=== PATIENT | female | born 1955 ===

== ENCOUNTER 2023-07-27 09:28 | Inpatient (IN) ==
--- NOTE | 2023-07-27 09:39 | Emergency Department Note ---
Impression & Plan Atrial fibrillation and flutter, Chest pain ED Provider Note NAME: RAJINDER MEADOWS AGE: 68 SEX: F : 1955 ARRIVES VIA: Walk-In INFORMANT: Patient, ED PROVIDER(S): Ezequiel Flores MD CHIEF COMPLAINT: Outpatient referral, A-fib MEDICAL DECISION MAKING: Patient presents as an outpatient referral due to concern for A-fib and elevated heart rate. IV was established and blood work was obtained. Patient has a normal white count H&H and platelet count patient's kidney function is unremarkable but with prerenal azotemia. Mag is normal. TSH is elevated so free T4 was added. Chest x-ray clear. Heart rate is currently well-controlled. EKG shows possible atrial flutter with variable block versus A-fib but is irregularly irregular [id number] score of 2 so heparin drip was ordered. I did speak with the on-call hospital service Dr. Rocha after informing the patient the patient's of the findings and recommendations. They are comfortable plan of care. Patient was admitted to the medicine service Dr. Rocha. Critical Care: I have personally spent 40 minutes of critical care time in direct management of this patient. This includes bedside care, interpretation of diagnostic studies, and testing, discussion with consultants, patient, and family members, and other require inpatient management activities. This 40 minutes is in excess of all separately billable procedures. Discussion w/ other healthcare providers: Dr. Rocha inpatient medicine service Prior /Outside records reviewed: None Differential diagnosis: Cardiac ischemia, aortic dissection, pulmonary embolism, pneumothorax, pneumonia, pericarditis, myocarditis, GERD, cholecystitis, pancreatitis, musculoskeletal, as well as other pathologies were considered. Diagnostics, as interpreted by me: ECG: Irregularly irregular, possible A-fib versus atrial flutter with variable block. Cardiac monitoring: An order was placed for continuous cardiac monitoring. The monitor shows a rate of 82 with irregular irregular rhythm. Patient was placed on pulse oximetry Medical decision rules: CHADS2 vascular score Imaging studies: I informally interpreted the patient's chest x-ray does not show obvious pneumonia or pneumothorax with formal report to follow. HPI: Patient presents with at bedside due to concern for outpatient A- fib and referral. Patient reportedly showed up to a [facility] [employer] [facility] [facility] appointment a day early but vitals were taken and she was referred here after noticing that the patient was in A-fib. The patient states that occasionally she has had episodes of palpitations in the past but not in the last several weeks. Patient denies any shortness of breath. She does occasionally get left-sided chest pain but it is fleeting in nature and thinks it is related to muscle strain. The patient denies any nausea vomiting or diaphoresis. No recent falls or trauma. Th no reported cough or fever. The patient does drink alcohol sparingly and denies any tobacco or drug use. She does drink a caffeinated coffee once per day. Patient denies any prior history of A-fib. In the past when she did have some associated palpitations the patient had been on Synthroid in the past but this was stopped as it was thought that maybe it was exacerbating her palpitations. Patient denies any recent changes in medications or missed doses. The patient does follow with Dr. Lombardo with internal medicine and does follow with Dr. Funes with [facility] [employer] [facility]. Patient's also reports that the patient has had some associated urinary symptoms frequency and urgency and does have a follow-up with urology gynecology at [facility] in August. Patient is currently on Cipro. Patient states that she occasionally does get some lower extremity swelling but she did walk around a lot yesterday and this seems to have improved. PAST MEDICAL HISTORY: See Below PAST SURGICAL HISTORY: See Below SOCIAL HISTORY: See Below HOME MEDICATIONS: See Below ALLERGIES: See Below VITALS: See Below PHYSICAL EXAMINATION: GENERAL: NAD, non-toxic. EYE EXAM: Normal conjunctiva. PERRL, no anisocoria and EOM's grossly intact w/o pain. OROPHARYNX: Moist mucus membranes, grossly normal dentition. NECK: Trachea midline, no stridor. LUNGS: Clear to auscultation. Normal chest wall mechanics. HEART: N irregularly irregular SR, no MRG. ABDOMEN: Abdomen soft, non-tender, no masses, no rebound or guarding. BACK: No CVA TTP. SKIN: No rashes and no bruising. UPPER EXTREMITIES: Upper extremities are grossly normal. LOWER EXTREMITIES: Grossly normal, no edema. NEURO EXAM: A&O x3, cranial nerves II-XII grossly intact, normal speech, moves all 4 extremities. Past Med/Surg History Problem List (Updated 07/27/23 @ 12:05 by Ezequiel Flores MD) Chest pain (Acute) Atrial fibrillation and flutter (Acute) Encounter for pre-operative examination Medical History Overactive bladder History of hypothyroidism med causing palpitations years ago, no longer on medication Diabetes mellitus, type 2 NIDDM Glaucoma Follows with eye doctor routinely Hypertension Surgical History S/P panniculectomy Hx of colonoscopy Hx of bilateral cataract extraction Social History Smoking Status: Never smoker Second Hand Exposure: No; Do You Dip or Chew Tobacco: No; Hx Alcohol Use: Yes Hx Substance Use: No Preferred Language: Solomon Islander Communication Ability: Effective Anger Control Counselor Required: No Beliefs That Will Affect Care: None Current Living Situation: Spouse Feels Safe at Home: Yes Assistive Devices: None Allergies Allergies Allergy/AdvReac Type Severity Reaction Status Date / Time No Known Allergies Allergy Verified 07/23/23 08:41 Home Meds Home Medications Medication Instructions Recorded Confirmed amlodipine 5 mg tablet 5 mg PO HS 07/23/23 07/23/23 bimatoprost 0.01 % eye drops 1 drp ophthalmic (eye) HS 07/23/23 07/23/23 (Lumigan) brimonidine 0.2 %-timolol 0.5 % 1 drp ophthalmic (eye) BID 07/23/23 07/23/23 eye drops (Combigan) calcium carbonate 600 mg-vitamin 1 tab PO DAILY 07/23/23 07/23/23 D3 5 mcg (200 unit) tablet losartan 50 mg tablet 50 mg PO HS 07/23/23 07/23/23 metformin 500 mg tablet 250 mg PO BID 07/23/23 07/23/23 mirabegron 50 mg tablet,extended 50 mg PO QAM 07/23/23 07/23/23 release 24 hr (Myrbetriq) multivitamin 1 tab PO QAM 07/23/23 07/23/23 zolpidem 5 mg tablet (Ambien) 5 mg PO HS 07/23/23 07/23/23 Results & Data (ED) Vital Signs Vital Signs - 24 hr 07/27/23 09:31 07/27/23 09:44 07/27/23 10:02 Temperature 36.8 C Temperature Source Skin Pulse Rate 132 H 63 68 Pulse Rate [Apical] Pulse Rhythm Regular Pulse Rhythm [Apical] Pulse Strength Normal Pulse Strength [Apical] Respiratory Rate 18 18 20 Respiratory Effort / Characteristics Non-Labored Spontaneous Respiratory Depth Normal Respiratory Pattern Regular Blood Pressure 90/64 L Blood Pressure [Right Arm] Blood Pressure Mean 72 Blood Pressure Mean [Right Arm] Blood Pressure Position Sitting Pulse Oximetry 97 Oxygen Delivery Method Room Air Sepsis Recent Fever Within 48 Hours No Sepsis New/Unexplained Change in Mental Status No Sepsis Action Taken by Nursing No Action Required 07/27/23 10:03 07/27/23 10:39 07/27/23 11:00 Temperature Temperature Source Pulse Rate 75 73 Pulse Rate [Apical] 67 Pulse Rhythm Pulse Rhythm [Apical] Pulse Strength Pulse Strength [Apical] Respiratory Rate 20 19 Respiratory Effort / Characteristics Non-Labored Spontaneous Respiratory Depth Normal Respiratory Pattern Regular Blood Pressure Blood Pressure [Right Arm] 84/53 L Blood Pressure Mean Blood Pressure Mean [Right Arm] 63 Blood Pressure Position Pulse Oximetry 96 Oxygen Delivery Method Room Air Sepsis Recent Fever Within 48 Hours Sepsis New/Unexplained Change in Mental Status Sepsis Action Taken by Nursing 07/27/23 11:53 Temperature Temperature Source Pulse Rate Pulse Rate [Apical] 81 Pulse Rhythm Pulse Rhythm [Apical] Irregular Pulse Strength Pulse Strength [Apical] Normal Respiratory Rate 19 Respiratory Effort / Characteristics Non-Labored Spontaneous Respiratory Depth Normal Respiratory Pattern Regular Blood Pressure Blood Pressure [Right Arm] 107/81 Blood Pressure Mean Blood Pressure Mean [Right Arm] 89 Blood Pressure Position Pulse Oximetry 98 Oxygen Delivery Method Room Air Sepsis Recent Fever Within 48 Hours Sepsis New/Unexplained Change in Mental Status Sepsis Action Taken by Long Term Medications Current Medication List: was personally reviewed by me Laboratory Data Attestation: I reviewed the patient's lab results. 07/27/23 10:17 07/27/23 10:17 Lab Results 07/27/23 Range/Units 10:17 WBC 6.01 (4.8-10.8) K/ul RBC 4.10 L (4.20-5.40) M/uL Hgb 12.2 (12.0-16.0) g/dl Hct 37.4 (37.0-47.0) % MCV 91.2 (80.0-100.0) fL MCH 29.8 (25.0-34.0) pg MCHC 32.6 (32.0-36.0) g/dL RDW Std Deviation 43.1 (36.4-46.3) fL RDW Coeff of Janice 13.0 (11.5-14.5) % Plt Count 227 (130-400) K/uL MPV 9.8 (9.4-12.4) fL Immature Gran % (Auto) 0.3 % Neut % (Auto) 68.6 % Lymph % (Auto) 20.6 % Coryell % (Auto) 7.5 % Eos % (Auto) 2.3 % Baso % (Auto) 0.7 % Neut # (Auto) 4.12 (1.40-6.50) K/uL Lymph # (Auto) 1.24 (1.20-3.40) K/uL Coryell # (Auto) 0.45 (0.11-0.59) K/uL Eos # (Auto) 0.14 (0.00-0.50) K/uL Baso # (Auto) 0.04 (0.00-0.20) K/uL Immature Gran # (Auto) 0.02 (0.01-0.20) K/uL PT 10.7 (9.0-12.0) Seconds INR 1.0 (0.9-1.1) APTT 26 (21-31) Seconds PTT Ratio 1.0 Sodium 139 (136-145) mmol/L Potassium 4.2 (3.5-5.1) mmol/L Chloride 107 (98-107) mmol/L Carbon Dioxide 26 (21-32) mmol/L Anion Gap 6 (3-11) BUN 21 (6-23) mg/dl Creatinine 0.86 (0.6-1.2) mg/dl Est Cr Clr Drug Dosing Not Reportable Est GFR ( Amer) 81.0 ml/min Est GFR (Non-Af Amer) 69.9 ml/min BUN/Creatinine Ratio 24.4 H (10-20) Glucose 140 H (70-99(Fasting)) mg/dl Calcium 9.2 (8.6-10.3) mg/dl Magnesium 2.0 (1.7-2.4) mg/dl Total Bilirubin 0.6 (0.2-1.0) mg/dl AST 19 (13-39) U/L ALT 23 (7-52) U/L Alkaline Phosphatase 59 (34-104) U/L Troponin I High Sens 3.6 (0-14) pg/ml Total Protein 7.1 (6.0-8.3) gm/dl Albumin 4.1 (3.4-5.0) gm/dl Globulin 3.0 (2.5-4.0) gm/dl Albumin/Globulin Ratio 1.4 (0.9-2) TSH 6.089 H (0.300-4.500) uIu/ml Free T4 Cancelled Administered Medications Heparin Sodium/Dextrose (Heparin Sodium/Dextrose) 25,000 units in 500 mls @ 14 mls/hr IV .Q24H JENNIFER; Protocol Stop: 08/26/23 11:29 Last Admin: 07/27/23 12:00 Dose: 700 units/hr, 14 mls/hr Documented By: JADE Co-signed By: CONNOR Imaging Data Radiologist's Impression: Chest X-Ray 07/27/23 10:04 XR chest 1V portable HISTORY: 68 years-old Female Dysrhythmia COMPARISON: None TECHNIQUE: AP view the chest FINDINGS: Cardiac silhouette is mildly enlarged. The lungs are clear with minimal left basilar atelectasis. No pneumothorax or pleural effusion. IMPRESSION: Cardiomegaly without acute process. ACT 112: Negative or not required by law. The above report was generated using voice recognition software. It may contain grammatical, syntax or spelling errors. Electronically signed by: Skip Avendano M.D. 07/27/2023 10:22 AM Discharge Plan Visit Data Chief Complaint: Cardiac Assessment Stated Complaint: AFIB FOUND DURING PRE-OP APPT ED Provider: Ezequiel Flores Discharge Problem: Atrial fibrillation and flutter, Chest pain Forms Stand Alone Forms: My [facility] Prescriptions Prescriptions: No Action multivitamin Tablet 1 tab PO QAM losartan 50 mg Tablet 50 mg PO HS metformin 500 mg Tablet 250 mg PO BID amlodipine 5 mg Tablet 5 mg PO HS calcium carbonate-vitamin D3 [Calcium + D] 600 mg-5 mcg (200 unit) Tablet 1 tab PO DAILY Patient Comments: doesn't take on a regular basis zolpidem [Ambien] 5 mg Tablet 5 mg PO HS brimonidine-timolol [Combigan] 0.2-0.5 % Drops 1 drp OPHTHALMIC (EYE) BID Lumigan 0.01 % Drops 1 drp OPHTHALMIC (EYE) HS mirabegron [Myrbetriq] 50 mg Tablet Extended Release 24 Hr 50 mg PO QAM Referrals Referrals: Valeria Macias M.D. [Primary Care Provider] - Discharge Problem: Chest pain Qualifiers: Chest pain type: unspecified Qualified Code(s): R07.9 - Chest pain, unspecified
--- NOTE | 2023-07-27 10:24 | XRay Report ---
XR chest 1V portable HISTORY: 68 years-old Female Dysrhythmia COMPARISON: None TECHNIQUE: AP view the chest FINDINGS: Cardiac silhouette is mildly enlarged. The lungs are clear with minimal left basilar atelectasis. No pneumothorax or pleural effusion. IMPRESSION: Cardiomegaly without acute process. ACT 112: Negative or not required by law. The above report was generated using voice recognition software. It may contain grammatical, syntax o r spelling errors. Electronically signed by: Skip Avendano M.D. 07/27/2023 10:22 AM
[2023-07-27 10:32] LABS: Basophils # (auto) 0.04 K/uL (0.00-0.20); Basophils % (auto) 0.7 %; Eosinophils # (auto) 0.14 K/uL (0.00-0.50); Eosinophils % (auto) 2.3 %; Hematocrit (blood only) 37.4 % (37.0-47.0); Hemoglobin 12.2 g/dl (12.0-16.0); Immature Granulocytes # (auto) 0.02 K/uL (0.01-0.20); Immature Granulocytes % (auto) 0.3 %; Lymphocytes # (auto) 1.24 K/uL (1.20-3.40); Lymphocytes % (auto) 20.6 %; Mean Corpuscular Hemoglobin 29.8 pg (25.0-34.0); Mean Corpuscular Hgb Conc 32.6 g/dL (32.0-36.0); Mean Corpuscular Volume 91.2 fL (80.0-100.0); Mean Platelet Volume 9.8 fL (9.4-12.4); Monocytes # (auto) 0.45 K/uL (0.11-0.59); Monocytes % (auto) 7.5 %; Neutrophils # (auto) 4.12 K/uL (1.40-6.50); Neutrophils % (auto) 68.6 %; Platelet Count 227 K/uL (130-400); RDW Standard Deviation 43.1 fL (36.4-46.3); White Blood Count 6.01 K/ul (4.8-10.8)
[2023-07-27 10:48] LABS: Alanine Aminotransferase 23 U/L (7-52); Albumin Globulin Ratio 1.4 (0.9-2); Albumin Level 4.1 gm/dl (3.4-5.0); Alkaline Phosphatase 59 U/L (34-104); Anion Gap 6 (3-11); Aspartate Aminotransferase 19 U/L (13-39); BUN Creatinine Ratio 24.4 (10-20); Bilirubin,Total 0.6 mg/dl (0.2-1.0); Blood Urea Nitrogen 21 mg/dl (6-23); Calcium 9.2 mg/dl (8.6-10.3); Carbon Dioxide 26 mmol/L (21-32); Chloride 107 mmol/L (98-107); Est GFR (Non-African American) 69.9 ml/min; Glucose 140 mg/dl (70-99(Fasting)); Potassium 4.2 mmol/L (3.5-5.1); Sodium 139 mmol/L (136-145); Total Protein 7.1 gm/dl (6.0-8.3)
[2023-07-27 10:54] LABS: Troponin I High Sensitivity 3.6 pg/ml (0-14)
[2023-07-27 10:58] LABS: Partial Thromboplastin Time 26 Seconds (21-31); Prothrombin Time 10.7 Seconds (9.0-12.0)
[2023-07-27 11:03] LABS: Thyroid Stimulating Hormone 6.089 uIu/ml (0.300-4.500)
[2023-07-27] MEDS ORDERED: GLUCOSE 40% GEL 15 GM TUBE PO PRN (11:38)
[2023-07-27] MEDS ORDERED: POLYETHYLENE (MIRALAX) 17 GM PACK PO PRN (11:38)
[2023-07-27] MEDS ORDERED: ACETAMINOPHEN 325 MG TAB PO PRN (11:38)
[2023-07-27] MEDS ORDERED: ONDANSETRON INJ 2 MG/ML 2 ML VIAL IV PRN (11:38)
[2023-07-27] MEDS ORDERED: DEXTROSE 50% 50 ML SYRINGE IV PRN (11:38)
[2023-07-27] MEDS ORDERED: ALUMINUM/MAGNESIUM SUSP 30 ML UDC PO PRN (11:38)
[2023-07-27] MEDS ORDERED: GLUCAGON FOR INJ 1 MG VIAL SQ PRN (11:38)
[2023-07-27] MEDS ORDERED: CARBOHYDRATES FOR HYPOGLYCEMIA PO PRN (11:38)
[2023-07-27] MEDS ORDERED: GLUCOSE 10 TAB/TUBE PO PRN (11:38)
--- NOTE | 2023-07-27 11:52 | History & Physical Report ---
Date of Service July 27, 2023 Assessment & Plan (1) Atrial fibrillation and flutter: Plan Atrial fibrillation, rate controlled, new diagnosis, symptomatic Patient sent from preop evaluation for noting A-fib in the EKG. Admitting EKG with A-fib w/ rates 60s to 70s. Patient with no complaint of palpitation, has intermittent chest pain. TSH minimally elevated, patient was on levothyroxine in the past which was discontinued due to frequent palpitations in the past. Patient was started on heparin drip, will continue Cardiology consult, telemetry monitoring. Likely to p.o. anticoagulation on discharge. monitor and replete electrolytes. Being treated for UTI as an outpatient: Day 3 of ciprofloxacin per patient. Will continue ciprofloxacin 500 mg twice daily. Other chronic medical conditions: medications were reviewed with the patient in detail. Continue/resume home meds as and when able. DVT prophylaxis: Patient on heparin drip for A-fib Full code History of Present Illness Chief Complaint: afib Primary Care Provider: Valeria Macias 68-year-old female with PMH of HTN, overactive bladder on Myrbetriq presented to the ED at referral from preop evaluation due to noted A-fib with rate in 70s in the EKG. Patient reports having history of intermittent palpitation in the past and her PCP has discontinued her levothyroxine which kind of took care of her frequent palpitations in the past. See also reports some intermittent spontaneously resolving in few seconds kind of chest pain once a week around the mid sternum. She feels it is sprain. Patient denies fever/sore throat/cough/palpitation currently/belly pain. Patient reports being on antibiotic day 3 of Cipro for UTI. Patient denies abdominal pain or any acute changes in her bowel habit. Patient denies smoking/alcohol/recreational drug use. Full code Plan of care discussed in detail with the patient. Allergies Allergy/AdvReac Type Severity Reaction Status Date / Time No Known Allergies Allergy Verified 07/23/23 08:41 Home Medications Medication Instructions Recorded Confirmed Type amlodipine 5 mg tablet 5 mg PO HS 07/23/23 07/23/23 History bimatoprost 0.01 % eye drops 1 drp ophthalmic (eye) HS 07/23/23 07/23/23 History (Ruben) brimonidine 0.2 %-timolol 0.5 % 1 drp ophthalmic (eye) BID 07/23/23 07/23/23 History eye drops (Combigan) calcium carbonate 600 mg-vitamin 1 tab PO DAILY 07/23/23 07/23/23 History D3 5 mcg (200 unit) tablet losartan 50 mg tablet 50 mg PO HS 07/23/23 07/23/23 History metformin 500 mg tablet 250 mg PO BID 07/23/23 07/23/23 History mirabegron 50 mg tablet,extended 50 mg PO QAM 07/23/23 07/23/23 History release 24 hr (Myrbetriq) multivitamin 1 tab PO QAM 07/23/23 07/23/23 History zolpidem 5 mg tablet (Ambien) 5 mg PO HS 07/23/23 07/23/23 History Past Med/Surg History Problem List (Updated 07/27/23 @ 11:45 by Ezequiel Flores MD) Chest pain (Acute) Atrial fibrillation and flutter (Acute) Encounter for pre-operative examination Medical History Overactive bladder History of hypothyroidism med causing palpitations years ago, no longer on medication Diabetes mellitus, type 2 NIDDM Glaucoma Follows with eye doctor routinely Hypertension Surgical History S/P panniculectomy Hx of colonoscopy Hx of bilateral cataract extraction Social History Smoking Status: Never smoker Second Hand Exposure: No; Do You Dip or Chew Tobacco: No; Hx Alcohol Use: Yes Hx Substance Use: No Preferred Language: Hungarian Communication Ability: Effective Email Marketing Processor Required: No Beliefs That Will Affect Care: None Current Living Situation: Spouse Feels Safe at Home: Yes Assistive Devices: None Review of Systems Review of Systems: Negative otherwise mentioned in HPI. Physical Exam Physical Exam: GENERAL: Alert and oriented x3. NAD, on RA. HEENT: No pallor, no icterus. Pupils equal, round and reactive to light. Oral mucosa moist. NECK: No JVD, no neck masses. HEART: S1 and S2 heard. irregular rate and rhythm. No murmur, no gallop. RESPIRATORY SYSTEM: Normal AP diameter. No accessory muscle use. No wheezing, no crackles. ABDOMEN: Soft, bowel sounds present, nontender, no distention. CENTRAL NERVOUS SYSTEM: No facial droop. Speech is clear. Obeys simple commands. Moves extremities. EXTREMITIES: No edema, no erythema seen. Results & Data Results & Data Vital Signs (Past 12 Hours) Vital Signs Temp Pulse Pulse Resp BP BP Pulse Ox 07/27/23 11:00 67 19 84/53 L 96 07/27/23 10:39 73 20 07/27/23 10:03 75 07/27/23 10:02 68 20 07/27/23 09:44 63 18 07/27/23 09:31 36.8 C 132 H 18 90/64 L 97 O2 Del Method 07/27/23 11:00 Room Air 07/27/23 10:39 07/27/23 10:03 07/27/23 10:02 07/27/23 09:44 07/27/23 09:31 Room Air
[2023-07-27] MEDS: HEPARIN SODIUM/DEXTROSE 25,000 UNITS/500 ML BAG IV SCH (12:00)
[2023-07-27] MEDS: Heparin IV Adult Wt-Based Low-Dose *NO* INITIAL Bolus Protocol IV STA (12:05)
[2023-07-27 12:26] LABS: T4 Free Thyroxine 0.98 ng/dl (0.61-1.60)
--- NOTE | 2023-07-27 16:07 | Cardiology Consultation ---
Date of Consultation July 27, 2023 Assessment & Plan (1) Atrial fibrillation and flutter: (2) Hypertension: (3) Hypothyroidism: Plan Assessment: 68 year old female that presents after EKG obtained for preop surgical clearance demonstrates Atrial fibrillation, rate controlled with no prior history. Plan: 1. Atrial fibrillation: -New onset, although given patient's reports of years of palpitations, suspect this is just the first that it has been diagnosed. -Etiology unclear. labs stable outside of elevated TSH; however, free T4 is normal. -Currently under treatment for a acute UTI with oral antibiotics, continue. -Rate controlled on telemetry, continue to monitor. -Will obtain echocardiogram to assess overall structure, function and for any concerns of valvular disease. -Continue Heparin gtt at this time. CHADs2-VASC score of 3 (Age, Gender, HTN) increasing her risk of a thrombo-embolic event with recommendation for oral anticoagulation prior to discharge likely with Eliquis 5mg PO BID. 2. HTN: -currently at target. -Continue Amlodipine 5mg PO Daily and Losartan 50 mg Daily -Await echo results. 3. Hypothyroidism: -Elevated TSH; however, normal Free T4. Not currently on thyroid supplementation. -Continued monitoring and management by primary team. Case has been discussed with Dr. Orlando. Further recommendations regarding plan of care as per his assessment. I spent a total of 40 minutes on the date of service in preparation, delivery, documentation of the care provided to the patient excluding any time spent in the performance of separately billed services. SANA Cyr [facility] Cardiology [facility] Supervising Physician Co-Signing Physician Notes Patient was seen and personally examined. Full assessment and plan as well outlined above. Care and management discussed in detail with advanced provider and personally endorsed 68-year-old female with history of hypertension, hypothyroidism, borderline hyperglycemia but no noted prior history of cardiac disease other than occasional palpitations. Patient presented for routine preoperative assessment was found to be in atrial fibrillation with controlled ventricular response rate secondary to intrinsic conduction system disease. Patient minimally symptomatic to asymptomatic No prior history of angina, myocardial infarction, congestive heart failure, TIA or stroke, vascular disease. Chads Vasc 2 score of 3 possibly 4 The echocardiogram demonstrates mild left hypertrophy with preserved wall motion [id number] biatrial enlargement and no significant valvular disease Plan:Observe on telemetry overnight. assess for tachy-ashley arrhythmias suspect patient may require low-dose rate control therapies. Anticoagulation initiated with IV heparin would convert to Eliquis if not cost prohibitive Discussed management pathways for atrial fibrillation with patient I spent a total of 25 minutes on the date of service in preparation, delivery, documentation of the care provided to the patient excluding any time spent in the performance of separately billed se History of Present Illness Reason for Consultation: New onset atrial fibrillation Requesting Physician: Ct hrady Attending Physician: Emmanuel Rocha MD History of Present Illness HPI: Patient is a very pleasant 68 year-old female what presented to the ED today upon recommendation of her primary provider due to an abnormal EKG. Patient had been at [facility] for a preoperative work-up in anticipation to undergo a Right Total knee arthroplasty in September [address] Funes. Upon obtaining the preop EKG, she was noted to be in A-fib with non-specific T wave abnormality;however, low voltage. Rates 76bpm. She was recommended to present to the ED. Repeat EKG essentially unchanged. No acute ST-T wave changes. PMHx: 1. HTN 2. Hypothyroidism 3. Overactive bladder, on Myrbetriq 4. OA Chest xray suggest cardiomegaly, but no acute process. Labs show normal renal function and electrolytes, Random glucose with mild elevation. no history of diabetes. WBC normal and no evidence of anemia. TSH elevated, Free T4 normal. Of note, patient is currently being treated for a UTI. Troponin negative x1 patient is resting comfortably in bed at time of consultation. Offers no significant complaint. She denies any chest pain, pressure or palpitations. She does; however, endorse that she has had palpitations for years which she reports that her PCP always attributed to her thyroid. Since reducing her medication, she feels that they have improved. She does endorse some increased palpitations on heavy exertion, but no chest pain or pressure, Quickly relieved with rest. Denies any shortness of breath, no PND, no lightheadedness or dizziness. No edema. She is an active individual. Gives the example that she was out hiking yesterday. Review of telemetry demonstrates A-fib rates 60-90's. Echocardiogram pending. Allergies Allergy/AdvReac Type Severity Reaction Status Date / Time No Known Allergies Allergy Verified 07/23/23 08:41 Home Medications Medication Instructions Recorded Confirmed Type amlodipine 5 mg tablet 5 mg PO HS 07/23/23 07/27/23 History bimatoprost 0.01 % eye drops 1 drp ophthalmic (eye) HS 07/23/23 07/27/23 History (Lumigan) brimonidine 0.2 %-timolol 0.5 % 1 drp ophthalmic (eye) BID 07/23/23 07/27/23 History eye drops (Combigan) losartan 50 mg tablet 50 mg PO HS 07/23/23 07/27/23 History metformin 500 mg tablet 250 mg PO BID 07/23/23 07/27/23 History mirabegron 50 mg tablet,extended 50 mg PO QPM 07/23/23 07/27/23 History release 24 hr (Myrbetriq) multivitamin 1 tab PO QAM 07/23/23 07/27/23 History zolpidem 10 mg tablet 10 mg PO HS 07/27/23 07/27/23 History Patient History Medical History Overactive bladder History of hypothyroidism med causing palpitations years ago, no longer on medication Diabetes mellitus, type 2 NIDDM Glaucoma Follows with eye doctor routinely Hypertension Surgical History S/P panniculectomy Hx of colonoscopy Hx of bilateral cataract extraction Social History Smoking Status: Never smoker Second Hand Exposure: No; Do You Dip or Chew Tobacco: No; Hx Alcohol Use: Yes Alcohol type: wine Hx Substance Use: No Preferred Language: Latvian Communication Ability: Effective Concert Singer Required: No Beliefs That Will Affect Care: None Current Living Situation: Family Feels Safe at Home: Yes Safety Concerns: Feels Safe At This Time Assistive Devices: None Review of Systems Review of Systems: All systems reviewed & are unremarkable except as noted in HPI & below Physical Exam Constitutional: well developed and well nourished; no acute distress and not ill appearing Neck: normal visual inspection and trachea midline Respiratory: normal respiratory effort, lungs clear to auscultation no cough Auscultation: lungs clear to auscultation bilaterally; no diminished lung sounds, no crackles, no rales, no rhonchi and no wheezes Cardiovascular: Rate/Rhythm: + irregularly irregular Heart Sounds: normal S1 and normal S2; no murmur Vessels: dorsalis pedis pulses present; no JVD Extremities: no edema Skin: no rashes, warm and dry Psychiatric: A+Ox3, euthymic affect Results & Data Vital Signs (Past 12 Hours) Vital Signs Temp Pulse Pulse Resp BP BP Pulse Ox 07/27/23 15:08 81 18 117/99 98 07/27/23 12:26 80 19 111/89 99 07/27/23 12:26 99 07/27/23 11:53 81 19 107/81 98 07/27/23 11:00 67 19 84/53 L 96 07/27/23 10:39 73 20 07/27/23 10:03 75 07/27/23 10:02 68 20 07/27/23 09:44 63 18 07/27/23 09:31 36.8 C 132 H 18 90/64 L 97 O2 Del Method 07/27/23 15:08 Room Air 07/27/23 12:26 Room Air 07/27/23 12:26 Room Air 07/27/23 11:53 Room Air 07/27/23 11:00 Room Air 07/27/23 10:39 07/27/23 10:03 07/27/23 10:02 07/27/23 09:44 07/27/23 09:31 Room Air Laboratory Results Cardiac Enzymes 07/27/23 Range/Units 10:17 AST 19 (13-39) U/L Troponin I High Sens 3.6 (0-14) pg/ml Coagulation 07/27/23 Range/Units 10:17 PT 10.7 (9.0-12.0) Seconds APTT 26 (21-31) Seconds CBC 07/27/23 Range/Units 10:17 WBC 6.01 (4.8-10.8) K/ul RBC 4.10 L (4.20-5.40) M/uL Hgb 12.2 (12.0-16.0) g/dl Hct 37.4 (37.0-47.0) % Plt Count 227 (130-400) K/uL Neut # (Auto) 4.12 (1.40-6.50) K/uL Lymph # (Auto) 1.24 (1.20-3.40) K/uL [place] # (Auto) 0.45 (0.11-0.59) K/uL Eos # (Auto) 0.14 (0.00-0.50) K/uL Baso # (Auto) 0.04 (0.00-0.20) K/uL Comprehensive Metabolic Panel 07/27/23 Range/Units 10:17 Sodium 139 (136-145) mmol/L Potassium 4.2 (3.5-5.1) mmol/L Chloride 107 (98-107) mmol/L Carbon Dioxide 26 (21-32) mmol/L BUN 21 (6-23) mg/dl Creatinine 0.86 (0.6-1.2) mg/dl Glucose 140 H (70-99(Fasting)) mg/dl Calcium 9.2 (8.6-10.3) mg/dl AST 19 (13-39) U/L ALT 23 (7-52) U/L Alkaline Phosphatase 59 (34-104) U/L Total Protein 7.1 (6.0-8.3) gm/dl Albumin 4.1 (3.4-5.0) gm/dl Intake and Output 07/27/23 07/27/23 07/27/23 06:59 14:59 22:59 Other: # Unmeasured Voids 1 1 Weight 69 kg Weight Measurement Method Built in [facility] Patient Weight 07/28/23 06:59 Weight 69 kg
--- NOTE | 2023-07-27 17:15 | Electrocardiogram Report ---
Test Reason : Blood Pressure : / mmHG Vent. Rate : 080 BPM Atrial Rate : 000 BPM P-R Int : 000 ms QRS Dur : 068 ms QT Int : 376 ms P-R-T Axes : 000 -05 -25 degrees QTc Int : 433 ms Atrial fibrillation Nonspecific T wave abnormality Abnormal ECG When compared with ECG of 27-JUL-2023 09:09, (unconfirmed) No significant change was found Confirmed by Cameron Eddy ([id number]) on 07/27/2023 5:14:59 PM Referred By: Valeria Macias Confirmed By:Cameron Eddy
[2023-07-27] MEDS: CALCIUM CARBONATE 500 MG CHEWABLE TAB PO STA (17:26)
[2023-07-27] MEDS: INSULIN ASPART PER UNIT CHARGE SC SCH (17:28)
[2023-07-27] MEDS ORDERED: Nursing to Pharmacy Communication SCH (17:45)
[2023-07-27 18:25] LABS: ANTI-Xa, UFH(UnfractionatedHep 0.33 IU/ml (0.3-0.7)
[2023-07-27] MEDS: BIMATOPROST 0.01% OP SOLN 2.5 ML BTL OP SCH (19:54)
[2023-07-27] MEDS: BRIMONIDINE TARTRATE/TIMOLOL OP SCH (19:54)
[2023-07-27] MEDS: amLODIPine BESYLATE 5 MG TAB PO SCH (19:55)
[2023-07-27] MEDS: CIPROFLOXACIN 500 MG TAB PO SCH (19:55)
[2023-07-27] MEDS: LOSARTAN POTASSIUM 50 MG TAB PO SCH (20:07)
[2023-07-27] MEDS ORDERED: BIMATOPROST 0.01% OP SOLN 2.5 ML BTL OP SCH (21:00)
[2023-07-27] MEDS: ZOLPIDEM TARTRATE 5 MG TAB PO SCH (22:25)
[2023-07-28 07:00] LABS: Hematocrit (blood only) 35.3 % (37.0-47.0); Hemoglobin 12.1 g/dl (12.0-16.0); Mean Corpuscular Hemoglobin 30.3 pg (25.0-34.0); Mean Corpuscular Hgb Conc 34.3 g/dL (32.0-36.0); Mean Corpuscular Volume 88.3 fL (80.0-100.0); Mean Platelet Volume 10.4 fL (9.4-12.4); Platelet Count 221 K/uL (130-400); RDW Coefficient of Variation 12.8 % (11.5-14.5); RDW Standard Deviation 41.2 fL (36.4-46.3); White Blood Count 5.05 K/ul (4.8-10.8)
[2023-07-28 07:19] LABS: BUN Creatinine Ratio 16.4 (10-20); Calcium 9.2 mg/dl (8.6-10.3); Creatinine Clr Calc Pharmacy 70.1 ml/min; Est GFR (African American) 98.8 ml/min; Est GFR (Non-African American) 85.2 ml/min; Magnesium 1.9 mg/dl (1.7-2.4); Potassium 3.7 mmol/L (3.5-5.1)
[2023-07-28 07:21] LABS: ANTI-Xa, UFH(UnfractionatedHep 0.53 IU/ml (0.3-0.7)
--- NOTE | 2023-07-28 08:17 | Hospitalist Progress Note ---
Date of Service July 28, 2023 Assessment & Plan (1) Atrial fibrillation and flutter: Plan Pt is a 68-year-old female with PMHx significant for HTN, overactive bladder on Myrbetriq who presented to the ED as a referral from preop evaluation due to noted A-fib with rate in 70s on EKG. Atrial fibrillation, rate controlled, new diagnosis, symptomatic Patient sent from preop evaluation for noted A-fib on the EKG. Admitting EKG with A-fib w/ rates 60s to 70s. Echo with noted EF 60-65%, mild LVH, mild dilation of the LA, moderate dilation of the RA Chest xray noting only cardiomegaly Patient with no complaint of palpitations, has intermittent chest pain. TSH minimally elevated, patient was on levothyroxine in the past which was discontinued due to frequent palpitations in the past. Patient was started on heparin drip, will continue Cardiology consulted, appreciate recs -continue with heparin, will transition to Elqiuis -will possibly need rate control meds Telemetry monitoring Complicated UTI Being treated for UTI as an outpatient Day 3 of ciprofloxacin per patient Will continue ciprofloxacin 500 mg twice daily Hyperglycemia Glucose levels elevated AM [id number] Other chronic medical conditions: medications were reviewed with the patient in detail. Continue/resume home meds as and when able. DVT prophylaxis: Patient on heparin drip for A-fib Dispo: Home once medically stable Admission and Anticipated Discharge Date Admission Date: July 27, 2023 Results & Data Results & Data Vital Signs (Past 12 Hours) Vital Signs Temp Pulse Pulse Resp BP Pulse Ox O2 Del Method 07/28/23 07:35 37.4 C 80 18 115/80 97 Room Air 07/28/23 07:28 74 07/28/23 02:50 36.7 C 78 16 108/70 99 Room Air 07/27/23 22:25 36.8 C 63 16 97/65 L 97 Room Air Diagnostic Findings Chest X-Ray 07/27/23 10:04 XR chest 1V portable HISTORY: 68 years-old Female Dysrhythmia COMPARISON: None TECHNIQUE: AP view the chest FINDINGS: Cardiac silhouette is mildly enlarged. The lungs are clear with minimal left basilar atelectasis. No pneumothorax or pleural effusion. IMPRESSION: Cardiomegaly without acute process. ACT 112: Negative or not required by law. The above report was generated using voice recognition software. It may contain grammatical, syntax or spelling errors. Electronically signed by: Skip Avendano M.D. 07/27/2023 10:22 AM
[2023-07-28] MEDS: VIBEGRON 75 MG TAB PO SCH (09:01)
--- NOTE | 2023-07-28 10:23 | Cardiology Progress Note ---
Date of Service July 28, 2023 Assessment & Plan (1) Atrial fibrillation and flutter: (2) Hypertension: (3) Hypothyroidism: Plan Assessment: 68 year old female that presents after EKG obtained for preop surgical clearance demonstrates Atrial fibrillation, rate controlled with no prior history. Plan: 1. Atrial fibrillation: -New onset, although given patient's reports of years of palpitations, suspect this is just the first that it has been diagnosed. -Etiology unclear. labs stable outside of elevated TSH; however, free T4 is normal. -Currently under treatment for a acute UTI with oral antibiotics, continue. -Rate controlled on telemetry, continue to monitor. -Will obtain echocardiogram to assess overall structure, function and for any concerns of valvular disease. -Continue Heparin gtt at this time. CHADs2-VASC score of 3 (Age, Gender, HTN) increasing her risk of a thrombo-embolic event with recommendation for oral anticoagulation prior to discharge likely with Eliquis 5mg PO BID. 2. HTN: -currently at target. -Continue Amlodipine 5mg PO Daily and Losartan 50 mg Daily -Await echo results. 3. Hypothyroidism: -Elevated TSH; however, normal Free T4. Not currently on thyroid supplementation. -Continued monitoring and management by primary team. 07/28/2023: -Patient is doing well from a cardiovascular standpoint. -Echocardiogram demonstrates normal LVEF with mild concentric LVH. There is notation of mild aortic valve sclerosis without stenosis, Trace AI, and moderate TR. there is also mild dilation of the left atrium which suggest her Atrial fibrillation has been present for some time. -Recommend starting low dose beta kevyn with Toprol xl 12.5mg PO QD. -Stop Heparin and transition to Eliqius 5mg PO BID. -BP controlled. Continue home medication regimen with Amlodipine and Losartan -labs stable this morning. -Review of telemetry shows Atrial fibrillation, rate controlled with no acute events overnight. -Patient will need to establish OP cardiology care and is aware they she will r equire a preoperative cardiac clearance once established for her plan of knee surgery. -Spouse and patient would like to establish cardiology care with Dr. Pérez ([facility]/ cardiology) as they live in the [place] area. Please send records and coordinate. -Patient is stable for discharge from a cardiac standpoint when ok with primary team. Case has been discussed with Dr. Orlando. Further recommendations regarding plan of care as per his assessment. I spent a total of 30 minutes on the date of service in preparation, delivery, documentation of the care provided to the patient excluding any time spent in the performance of separately billed services. SANA Cyr [facility] Admission and Anticipated Discharge Date Admission Date: July 27, 2023 Supervising Physician Co-Signing Physician Notes Patient was seen and personally examined. Full assessment and plan as well outlined above. Care and management discussed in detail with advanced provider and personally endorsed 68-year-old female with history of hypertension, hypothyroidism, borderline hyperglycemia but no noted prior history of cardiac disease other than occasional palpitations. Patient presented for routine preoperative assessment was found to be in atrial fibrillation with controlled ventricular response rate secondary to intrinsic conduction system disease. Patient minimally symptomatic to asymptomatic No prior history of angina, myocardial infarction, congestive heart failure, TIA or stroke, vascular disease. Chads Vasc 2 score of 3 possibly 4 The echocardiogram demonstrates mild left hypertrophy with preserved wall motion [id number] biatrial enlargement and no significant valvular disease Plan: Telemetry overnight without bradycardia or excessive tachycardia. Atrial fibrillation rates controlled by intrinsic conduction system disease Plan as above add low-dose metoprolol succinate 12.5 mg/day, anticoagulation indicated with Eliquis recommend Discussed care with patient and Okay for discharge with plan to follow-up with [facility] cardiology Rosa I spent a total of 20 minutes on the date of service in preparation, delivery, documentation of the care provided to the patient excluding any time spent in the performance of separately billed se Subjective 07/28/2023: Patient seen and examined in follow up today. Feeling well. she is sitting up in bed visiting with her spouse. Labs, vitals, diagnostics, telemetry and documentation reviewed. Telemetry reviewed showing A-fib, rates 80's. Denies any chest pain, pressure, palpitations, no shortness of breath, no PND, pre-syncope, syncope or edema. Review of Systems Review of Systems: All systems reviewed & are unremarkable except as noted in HPI & below Physical Exam Constitutional: well developed and well nourished; no acute distress and not ill appearing Neck: normal visual inspection and trachea midline Respiratory: normal respiratory effort, lungs clear to auscultation no cough Auscultation: lungs clear to auscultation bilaterally; no diminished lung sounds, no crackles, no rales, no rhonchi and no wheezes Cardiovascular: Rate/Rhythm: + irregularly irregular Heart Sounds: normal S1 and normal S2; no murmur Vessels: dorsalis pedis pulses present; no JVD Extremities: no edema Skin: no rashes, warm and dry Psychiatric: A+Ox3, euthymic affect Results & Data Vital Signs (Past 12 Hours) Vital Signs Temp Pulse Pulse Resp BP Pulse Ox O2 Del Method 07/28/23 07:35 37.4 C 80 18 115/80 97 Room Air 07/28/23 07:28 74 07/28/23 02:50 36.7 C 78 16 108/70 99 Room Air 07/27/23 22:25 36.8 C 63 16 97/65 L 97 Room Air Laboratory Results Cardiac Enzymes 07/27/23 07/27/23 Range/Units 10:17 17:43 AST 19 (13-39) U/L Troponin I High Sens 3.6 4.1 (0-14) pg/ml Coagulation 07/27/23 Range/Units 10:17 PT 10.7 (9.0-12.0) Seconds APTT 26 (21-31) Seconds CBC 07/27/23 07/28/23 Range/Units 10:17 06:12 WBC 6.01 5.05 (4.8-10.8) K/ul RBC 4.10 L 4.00 L (4.20-5.40) M/uL Hgb 12.2 12.1 (12.0-16.0) g/dl Hct 37.4 35.3 L (37.0-47.0) % Plt Count 227 221 (130-400) K/uL Neut # (Auto) 4.12 (1.40-6.50) K/uL Lymph # (Auto) 1.24 (1.20-3.40) K/uL [place] # (Auto) 0.45 (0.11-0.59) K/uL Eos # (Auto) 0.14 (0.00-0.50) K/uL Baso # (Auto) 0.04 (0.00-0.20) K/uL Comprehensive Metabolic Panel 07/27/23 07/28/23 Range/Units 10:17 06:12 Sodium 139 141 (136-145) mmol/L Potassium 4.2 3.7 (3.5-5.1) mmol/L Chloride 107 108 H (98-107) mmol/L Carbon Dioxide 26 25 (21-32) mmol/L BUN 21 12 (6-23) mg/dl Creatinine 0.86 0.73 (0.6-1.2) mg/dl Glucose 140 H 120 H (70-99(Fasting)) mg/dl Calcium 9.2 9.2 (8.6-10.3) mg/dl AST 19 (13-39) U/L ALT 23 (7-52) U/L Alkaline Phosphatase 59 (34-104) U/L Total Protein 7.1 (6.0-8.3) gm/dl Albumin 4.1 (3.4-5.0) gm/dl Intake and Output 07/27/23 07/28/23 07/28/23 22:59 06:59 14:59 Intake Total 461.033 / 461.033 167.3 / 167.3 Output Total Balance 461.033 / 461.033 166.3 / 166.3 Intake: IV 101.033 / 101.033 167.3 / 167.3 Heparin Sodium/Dextrose 25,000 101.033 / 101.033 167.3 / 167.3 units In 500 ml @ 700 UNITS/HR 14 mls/hr IV .Q24H JENNIFER Rx#: [id number] Oral 360 / 360 Output: # Bowel Movements Other: # Unmeasured Voids 1 Weight 66.2 kg 66.5 kg Weight Measurement Method Standing Scale Built in [facility] Diagnostic Findings Echocardiogram 07/27/2023: LVEF 60-65% mild concentric LVH LV systolic function is normal Left atrium is mildly dilated right atrium mildly dilated aortic valve sclerosis, mild. without stenosis Trace AI Moderate TR Doppler findings not suggestive of pulmonary HTN
[2023-07-28] MEDS: METOPROLOL SUCC 25MG EXT REL TAB PO SCH (11:37)
[2023-07-28] MEDS: APIXABAN 5 MG TABLET PO SCH (11:38)
--- NOTE | 2023-07-28 12:45 | Electrocardiogram Report ---
Test Reason : Blood Pressure : / mmHG Vent. Rate : 079 BPM Atrial Rate : 375 BPM P-R Int : 000 ms QRS Dur : 068 ms QT Int : 376 ms P-R-T Axes : 000 -09 -36 degrees QTc Int : 431 ms Atrial fibrillation Abnormal ECG When compared with ECG of 27-JUL-2023 09:37, T wave inversion more evident in Anterior leads Confirmed by Cameron Eddy ([id number]) on 07/28/2023 12:44:58 PM Referred By: Valeria Macias Confirmed By:Cameron Eddy
--- NOTE | 2023-07-28 12:50 | Electrocardiogram Report ---
Test Reason : Blood Pressure : / mmHG Vent. Rate : 096 BPM Atrial Rate : 113 BPM P-R Int : 000 ms QRS Dur : 068 ms QT Int : 358 ms P-R-T Axes : 000 199 219 degrees QTc Int : 452 ms Suspect arm lead reversal, interpretation assumes no reversal Atrial fibrillation Right superior axis deviation Low voltage QRS T wave abnormality, consider inferior ischemia Abnormal ECG When compared with ECG of 27-JUL-2023 16:19, (unconfirmed) QRS axis Shifted left T wave inversion now evident in Lateral leads Confirmed by Cameron Eddy ([id number]) on 07/28/2023 12:50:11 PM Referred By: Valeria Macias Confirmed By:Cameron Eddy
--- NOTE | 2023-07-28 13:39 | Discharge Summary ---
Discharge Summary Date of Service July 28, 2023 Principal Dx & Hospital Course #1 = Principal Diagnosis (1) Atrial fibrillation and flutter: Plan Pt is a 68-year-old female with PMHx significant for HTN, overactive bladder on Myrbetriq who presented to the ED as a referral from preop evaluation due to noted A-fib with rate in 70s on EKG. Atrial fibrillation, rate controlled, new diagnosis, symptomatic Patient sent from preop evaluation for noted A-fib on the EKG. Admitting EKG with A-fib w/ rates 60s to 70s. Echo with noted EF 60-65%, mild LVH, mild dilation of the LA, moderate dilation of the RA Chest xray noting only cardiomegaly Patient with no complaint of palpitations, has intermittent chest pain. TSH minimally elevated, patient was on levothyroxine in the past which was dis continued due to frequent palpitations in the past. Patient was started on heparin drip and transitioned to po Eliquis for discharge Cardiology consulted, appreciate recs -IV heparin with transition to Eliquis -started on metoprolol succinate 12.5mg daily Close cardiology followup after discharge, pt would like to follow with Dr Pérez ([facility]/ cardiology) as they live in the [place] area. Complicated UTI Being treated for UTI as an outpatient Day 4 of ciprofloxacin per patient Continued ciprofloxacin 500 mg twice daily Pt to finish the course Hyperglycemia Glucose levels elevated Outpt [id number] Other chronic medical conditions: medications were reviewed with the patient in detail. Continue/resume home meds as and when able. Notes For Next Care Provider Please ensure followup with Cardiology Medication Changes From Visit Metoprolol Succinate 12.5mg daily Eliquis 5mg BID Admission HPI Per Admitting Provider 68-year-old female with PMH of HTN, overactive bladder on Myrbetriq presented to the ED at referral from preop evaluation due to noted A-fib with rate in 70s in the EKG. Patient reports having history of intermittent palpitation in the past and her PCP has discontinued her levothyroxine which kind of took care of her frequent palpitations in the past. See also reports some intermittent spontaneously resolving in few seconds kind of chest pain once a week around the mid sternum. She feels it is sprain. Patient denies fever/sore throat/cough/palpitation currently/belly pain. Patient reports being on antibiotic day 3 of Cipro for UTI. Patient denies abdominal pain or any acute changes in her bowel habit. Patient denies smoking/alcohol/recreational drug use. Full code Plan of care discussed in detail with the patient. Admission Exam Per Admitting Provider GENERAL: Alert and oriented x3. NAD, on RA. HEENT: No pallor, no icterus. Pupils equal, round and reactive to light. Oral mucosa moist. NECK: No JVD, no neck masses. HEART: S1 and S2 heard. irregular rate and rhythm. No murmur, no gallop. RESPIRATORY SYSTEM: Normal AP diameter. No accessory muscle use. No wheezing, no crackles. ABDOMEN: Soft, bowel sounds present, nontender, no distention. CENTRAL NERVOUS SYSTEM: No facial droop. Speech is clear. Obeys simple commands. Moves extremities. EXTREMITIES: No edema, no erythema seen. Discharge Exam General: Alert, oriented. No acute distress Skin: No noted rashes or bruises Psych: Appropriate mood and affect Neuro: No gross deficits HEENT: NC/AT Chest: Nontender to palpation. CV: Irregular rate Resp: Breath sounds clear bilaterally, no increased effort of breathing. Abdomen: Soft, nontender, nondistended. Extremities: No edema in lower extremities bilaterally. Updated Medication List Medication Instructions Recorded Confirmed Type amlodipine 5 mg tablet 5 mg PO HS 07/23/23 07/27/23 History bimatoprost 0.01 % eye drops 1 drp ophthalmic (eye) HS 07/23/23 07/27/23 History (Lumigan) brimonidine 0.2 %-timolol 0.5 % 1 drp ophthalmic (eye) BID 07/23/23 07/27/23 History eye drops (Combigan) losartan 50 mg tablet 50 mg PO HS 07/23/23 07/27/23 History metformin 500 mg tablet 250 mg PO BID 07/23/23 07/27/23 History mirabegron 50 mg tablet,extended 50 mg PO QPM 07/23/23 07/27/23 History release 24 hr (Myrbetriq) multivitamin 1 tab PO QAM 07/23/23 07/27/23 History zolpidem 10 mg tablet 10 mg PO HS 07/27/23 07/27/23 History apixaban 5 mg tablet (Eliquis) 5 mg PO BID #60 tabs 07/28/23 Rx metoprolol succinate 25 mg 12.5 mg (1/2 x 25 mg) PO QAM #30 07/28/23 Rx tablet,extended release 24 hr tabs Hospital Stay Data Consultations 07/27/23 11:18 ED Decision to Admit Stat 07/27/23 11:37 Consult Cardiology Routine Diagnostic Imagining Performed Chest X-Ray 07/27/23 10:04 XR chest 1V portable HISTORY: 68 years-old Female Dysrhythmia COMPARISON: None TECHNIQUE: AP view the chest FINDINGS: Cardiac silhouette is mildly enlarged. The lungs are clear with minimal left basilar atelectasis. No pneumothorax or pleural effusion. IMPRESSION: Cardiomegaly without acute process. ACT 112: Negative or not required by law. The above report was generated using voice recognition software. It may contain grammatical, syntax or spelling errors. Electronically signed by: Skip Avendano M.D. 07/27/2023 10:22 AM Pending Results Patient Have Any Pending Studies at Discharge: No Discharge Instructions Given to Patient (Per Discharging Provider) Sirena You were seen by the tableau report developer regarding your atrial fibrillation. They recommend discharge home with the medications Toprol XL and Eliquis 5mg twice a day. Please keep close followup with cardiology after discharge. Continue with your antibiotics at home to finish the course as prescribed. Please also keep close follow up with your primary care provider after discharge. Please do not hesitate to come back to the emergency room if your symptoms worsen or return. It was a pleasure taking care of you while you were here. Total Time Total Time Spent Total Time Spent (In Minutes): 65
[2023-07-28 18:39] LABS: Estimated Average Glucose 123 mg/dl; Hemoglobin A1C 5.9 % (4.5-5.6)
== END 2023-07-28 14:15 | disposition home or self-care (01) | DRG 309 ==
LOC: ED 09:28 → SUATTDRO 11:38 → EDINP 11:38 → 2S 16:23